=== PATIENT | female | born 1950 | race Caucasian/White ===

== ENCOUNTER 2024-05-10 17:20 | Emergency (ER) | payer MEDICARE, OTHER, SELFPAY ==
[2024-05-10 17:45] VITALS: BP 112/72
--- NOTE | 2024-05-10 17:51 | ED.GENMED ---
ED Provider Triage
-
Patient seen by provider in Triage?: Seen in Triage
Attestation: A medical screening examination has been initiated by a qualified medical provider. Based on the assessment performed at this time, it has been determined that an emergent medical condition may exist and the patient has been informed
that further medical evaluation and possible additional diagnostic testing may be needed.
HPI: 74-year-old female presents to the ER for evaluation. Yesterday patient started with bodyaches chills cough, mild sore throat. She denies any shortness of breath. She did not take any ibuprofen or Tylenol. No other sick contacts at home.
GENERAL: Alert , in no apparent distress
EYE: No visual abnormalities.
NECK: Trachea midline
ENT: No visible abnormalities.
LUNGS: No acute respiratory distress
NEUROLOGICAL: Alert and oriented
SKIN: Skin intact. No visible changes.
MUSCULOSKELETAL: Moving extremities normally
PSYCH: Normal and appropriate interaction.
This is a medical evaluation conducted in person to initiate diagnostic evaluation and provide initial therapeutics. Please see further documentation by the treating clinician.
History of Present Illness
General
Chief Complaint: Cold/Flu/URI Symptoms
Source: patient
Exam Limitations: none
Time Seen by Provider: 05/10/24 18:51
Nursing documentation reviewed up to this point in time: agreed with
History of Present Illness
History of Present Illness:
Patient is a 74-year-old female presents to the ER complaining of bodyaches fever chills and cough since yesterday. No sick contacts. No shortness of breath. She has not taken any Tylenol or Motrin for her symptoms. She complains of mild sore
throat. She is drinking fluids and eating.
Review of Systems
Review of Systems
Allergies reviewed?: Yes
All Other Systems: ROS reviewed and negative except as documented in HPI and ROS
Constitutional: Reports fatigue and chills
EENT: Reports sore throat
Respiratory: Reports cough; Denies trouble breathing
Cardiac: Reports no symptoms
ABD/GI: Reports no symptoms
: Reports no symptoms
Musculoskeletal: Reports no symptoms
Neurological: Reports no symptoms
Psychiatric: Reports no symptoms
Phy Exam
General Physical Exam
General Presentation: no apparent distress
General age: appears stated age
General Skin: warm and dry
General Habitus: normal
General Mental: alert
General Hydration: appears well hydrated
Cardiovascular Exam
Cardiovascular Exam: regular rate/rhythm, no murmur and normal peripheral pulses
Pulmonary Exam
Pulmonary Exam: lungs clear and no respiratory distress
Neurological Exam
Neurological Exam: alert and oriented x3
Musculoskeletal Exam
Musculoskeletal Exam: full ROM
Skin Exam
Skin Exam: normal color and warm/dry
Psychiatric Exam
Psychiatric Exam: normal mood/affect
Course
Orders/Labs/Results
Orders:
Orders
05/10/24 17:52
Ibuprofen [Motrin] 600 mg .ROUTE .STK-MED ONE
05/10/24 17:54
Ibuprofen [Motrin] 600 mg PO NOW STA
05/10/24 17:55
COVID-19 Antigen Urgent
Source: Nasal Swab
Influenza A+B Rapid Molecular Urgent
DANNY Source: Nasal Swab
Specimen Description:
Abnormal Lab Results
05/10/24
17:55
SARS-CoV-2 Antigen Positive A
(Negative)
Vital Signs
Initial and Last Documented VS:
Initial Vital Signs
Temp Pulse Resp BP Pulse Ox
100.6 F H 101 20 112/72 97
05/10/24 17:45 05/10/24 17:45 05/10/24 17:45 05/10/24 17:45 05/10/24 17:45
Last Documented Vital Signs
Temp Pulse Resp BP Pulse Ox
100.6 F H 101 20 112/72 97
05/10/24 17:45 05/10/24 17:45 05/10/24 17:45 05/10/24 17:45 05/10/24 17:45
MDM/Problems Addressed
Differential Diagnosis Includes:
Not limited to viral infection, COVID, pneumonia, flu
MDM/Problems Addressed:
Patient in no acute distress patient found to be COVID-positive here in the ER. lungs are clear nonhypoxic well-appearing. Stable for discharge home with supportive care
*Critical Care Note
Total Time (30-74mins, 75-104mins- exclusive of procedures): Not Applicable
ED Attending Note
-
Portions of this chart may have been created with voice recognition software.� Occasional wrong word or��sound alike� substitutions may have occurred due to the inherent limitations of voice recognition software.
Discharge Plan
Departure
Patient Disposition: Home (Routine Discharge)
Date of Disposition: 05/10/24
Time of Disposition: 18:52
Patient with high blood pressure during this ER visit?: No
Condition: Fair
Covid-19: Confirmed COVID-19
Discharge Problem:
COVID-19
Instructions: COVID-19 in adults - Discharge instructions
Activity Restrictions/Additional Instructions:
As discussed you do have COVID. Be sure to get plenty of rest and stay well-hydrated. You may alternate with Tylenol and ibuprofen as needed for fever chills body aches. Return if any worsening of symptoms including shortness of breath.
Interventions
Interventions:
*Risk Screen - Suicide Last Done: 05/10/24 17:45
Discharge Date and Time
Print Language: PERSIAN
[2024-05-10] MEDS: MOTRIN 600 MG PO (17:54)
[2024-05-10 18:20] LABS: COVID-19 Antigen Positive (Negative)
== END 2024-05-10 19:06 | disposition home or self-care (01) ==
LOC: EMR 17:20
PROVIDERS: Nurse Practitioner; EMERGENCY PHYSICIAN Emergency Medicine
DX: U07.1 COVID-19 (principal)
CPT/HCPCS: 99282; 87502; 87811

== ENCOUNTER → 2024-09-21 10:13 | Outpatient (REF) | payer MEDICARE, OTHER, SELFPAY | LOC: RAD 10:13 | PROVIDERS: ATTENDING PHYSICIAN Internal Medicine Geriatric Medicine | DX: Z76.89 Persons encountering health services in other specified circumstances (principal); J40 Bronchitis, not specified as acute or chronic; R68.89 Other general symptoms and signs; K63.5 Polyp of colon; N94.89 Other specified conditions associated with female genital organs and menstrual cycle; E78.2 Mixed hyperlipidemia; E55.9 Vitamin D deficiency, unspecified; M81.0 Age-related osteoporosis without current pathological fracture | CPT/HCPCS: 77080 ==

== ENCOUNTER → 2024-10-26 07:16 | Outpatient (REF) | payer MEDICARE, OTHER, SELFPAY | LOC: RAD 07:16 | PROVIDERS: ATTENDING PHYSICIAN Internal Medicine Geriatric Medicine | DX: E78.2 Mixed hyperlipidemia (principal); J40 Bronchitis, not specified as acute or chronic; N94.89 Other specified conditions associated with female genital organs and menstrual cycle; K63.5 Polyp of colon; R68.89 Other general symptoms and signs; E55.9 Vitamin D deficiency, unspecified; M81.0 Age-related osteoporosis without current pathological fracture; Z12.31 Encounter for screening mammogram for malignant neoplasm of breast | CPT/HCPCS: 75571 ==

== ENCOUNTER → 2024-12-08 09:23 | Outpatient (REF) | payer MEDICARE, OTHER, SELFPAY ==
[2024-12-08 11:05] LABS: Calcium 9.6 mg/dl (8.4-10.2)
[2024-12-08 11:17] LABS: Vitamin D, 25-OH*** 34.7 ng/mL (30-80)
[2024-12-08 11:30] LABS: TSH 1.44 uIU/ml (0.47-4.68)
== END ==
LOC: REG 09:23
PROVIDERS: ATTENDING PHYSICIAN Nurse Practitioner Family; FAMILY PHYSICIAN Internal Medicine Geriatric Medicine
DX: M81.0 Age-related osteoporosis without current pathological fracture (principal); E55.9 Vitamin D deficiency, unspecified; E06.3 Autoimmune thyroiditis
CPT/HCPCS: 36415; 82306; 83970; 84439; 84443

== ENCOUNTER 2024-12-31 09:25 | Outpatient (RCR) | payer MEDICARE, OTHER, SELFPAY ==
[2024-12-31 09:44] VITALS: BP 107/60
[2024-12-31] MEDS: EVENITY 105 MG SC ×2 (10:04)
[2024-12-31 10:39] VITALS: BP 112/60
== END 2025-01-07 23:59 | disposition home or self-care (01) ==
LOC: OID 09:25
PROVIDERS: ATTENDING PHYSICIAN Nurse Practitioner Family; FAMILY PHYSICIAN Internal Medicine Geriatric Medicine
DX: M81.0 Age-related osteoporosis without current pathological fracture (principal)
CPT/HCPCS: 96372; J3111

== ENCOUNTER 2025-01-31 09:18 | Outpatient (RCR) | payer MEDICARE, OTHER, SELFPAY ==
[2025-01-31 09:37] VITALS: BP 111/61
[2025-01-31] MEDS: EVENITY 105 MG SC ×2 (09:44)
== END 2025-02-01 11:07 | disposition home or self-care (01) ==
LOC: OID 09:18
PROVIDERS: ATTENDING PHYSICIAN Nurse Practitioner Family; FAMILY PHYSICIAN Internal Medicine Geriatric Medicine
DX: M81.0 Age-related osteoporosis without current pathological fracture (principal)
CPT/HCPCS: 96372; J3111

== ENCOUNTER 2025-02-28 09:15 | Outpatient (RCR) | payer MEDICARE, OTHER, SELFPAY ==
[2025-02-28 09:25] VITALS: BP 118/59
[2025-02-28] MEDS: EVENITY 105 MG SC ×2 (09:33→09:34)
== END 2025-03-01 09:05 | disposition home or self-care (01) ==
LOC: OID 09:15
PROVIDERS: ATTENDING PHYSICIAN Nurse Practitioner Family; FAMILY PHYSICIAN Internal Medicine Geriatric Medicine
DX: M81.0 Age-related osteoporosis without current pathological fracture (principal)
CPT/HCPCS: 96372; J3111